=== PATIENT | female | born 2000 | race Caucasian/White ===

== ENCOUNTER 2024-04-08 02:20 | Emergency (ER) | payer BC ==
[2024-04-08] MEDS ORDERED: Mag-Al Plus 1200/1200/120 MG (30 mL) UDCUP ONE (03:19)
== END 2024-04-08 04:17 | disposition home or self-care (01) ==
LOC: CSHERS 02:20
DX: K30 Functional dyspepsia (principal); M54.6 Pain in thoracic spine; Z87.891 Personal history of nicotine dependence
CPT/HCPCS: 71045; 93005